=== PATIENT | male | born 1995 | race African-American/Black ===

== ENCOUNTER 2017-06-02 07:20 | Emergency (ER) | payer OTHER ==
[~2017-06-02] VITALS: Ht 190.5 cm; Wt 77.3 kg
[~2017-06-02 07:20] MED LIST: MONT1TAB3 PO; PRVHFAIN INH
[2017-06-02 07:26] VITALS: Ht 190.5 cm; Wt 77.3 kg
[2017-06-02] MEDS ORDERED: AMOXICILLIN 250 MG CAP PO STA (07:32)
[2017-06-02] MEDS ORDERED: LIDOCAINE/EPINEPHRINE 1% 20 ML VIAL INFIL STA (07:32)
[2017-06-02] MEDS ORDERED: CHLORHEXIDINE GLUCONATE 0.12% 480 ML MT STA (07:32)
--- NOTE | 2017-06-02 07:42 | EMERGENCY ROOM VISIT NOTE ---
ED Visit Note First contact with patient: 07:27 Chief Complaint: Facial Laceration History of Present Illness: This patient is a 21-year-old male. Who presents to the Emergency Department via private vehicle for evaluation of their left lower lip communicating laceration. Patient sustained the laceration while playing with friends around 5:30 AM, when he fell forward through a hedge struck a branch. They report a moderate amount of bleeding initially. They report no loss of consciousness. They deny any headache, visual disturbance, nausea, vomiting, or neck pain. Patient rates his current discomfort as a 1/10. Patient's Tetanus status is currently up-to-date. Medications: As noted below Allergies: Shellfish PMH: No pertinent SHx: Patient is currently a [employer] student and lives locally ROS: All pertinent positive and negative review of systems are appropriately documented in the History of Present Illness. Physical Exam: VITAL SIGNS - Vital signs and nursing notes were reviewed. Stable GENERAL -21-year-old male appearing his stated age. Communicates well with provider and answers questions appropriately. SKIN - There is a 2 cm laceration noted left lower lip that does not cross the vermilion border does communicate intraorally with an associated laceration on the inner lip of the same size. The edges gape apart with traction. There is no active bleeding appreciated. No deep structures including vessels, musculature, or bony structures are appreciated. HEAD - Normocephalic. No Goyal's Sign or Raccoon's Eyes. No depressed skull fractures palpable. EYES - PERRL with EOMI bilaterally. Without subconjunctival hemorrhage. Palpebral conjunctiva pink and moist with no injection. EARS - No deformities of external structures noted on gross examination bilaterally. No hemotympanum present. No tympanic perforation noted. NOSE - Midline and without cyanosis. No epistaxis or clear watery discharge noted. Septum midline without deviation. No septal hematoma noted. No overlying ecchymosis noted. MOUTH/OROPHARYNX - Without perioral cyanosis. Tongue midline with equal elevation of palate bilaterally. No blood noted in the oropharynx. No tonsillar hypertrophy, erythema, or exudates noted. The lower dentition tooth #24-25 retracted and slightly avulsed NECK - FROM assessed. No tenderness to palpation over the cervical spinous processes. No cervical paraspinal muscle tenderness noted. LUNGS - Chest wall symmetric without accessory muscle use, intercostals retractions, or central cyanosis. Normal vesicular breath sounds CTA B/L. No wheezes, rales, or rhonchi appreciated. CARDIAC - RRR with S1/S2. No murmur, rubs, or gallops appreciated. EXTREMITIES - No gross deformities noted of the extremities. +5/5 strength noted in UE/LE bilaterally. NEUROLOGIC - Cranial nerves II through XII grossly intact. Sensory intact to light touch throughout. Patient able to perform rapid alternating movements appropriately. Negative Romberg and Pronator Drift. PSYCH - A&Ox3 and cooperates fully with examiner. Pt is very pleasant and interacts well with examiner. ED Course: Patient was seen and evaluated by myself. Patient had no focal neurological deficits. Patient's exam is otherwise unremarkable. Patient reports no headaches , visual disturbances, nausea, vomiting, or over-lethargy. Risks and benefits of performing primary wound closure versus no repair were discussed with the patient who verbalizes understanding. Verbal consent was obtained prior to performing the procedure. 3 cc of 1% buffered lidocaine with epinephrine was used to anesthetize the 2 cm external as well as 2 cm internal laceration. The wound was cleansed and prepped in the typical sterile fashion utilizing normal saline. Amoxicillin was given to help prevent infection. Peridex mouthwash was initiated. The wound was sterilely draped. Once proper anesthetization was established, the wound was further examined and demonstrated communicative laceration. The wound was copiously irrigated with normal saline and Betadine. The wound was closed using 3 simple, 6-0 nylon sutures with the wound edges being well approximated as well as 2 simple, 6-0 Vicryl sutures with wound edges being well approximated. Patient tolerated the procedure well. No complications were met. In regard to the 2 loose teeth, the oral maxillofacial surgeon Dr. Mir was consult. He agreed to come and assess the patient. The wound was cleansed. Dr. Mir but the teeth back in place. Patient is a follow-up with him by calling his office tomorrow. He appears stable for outpatient management. Please refer to documentation by Dr. Mir. He'll be given amoxicillin to help prevent infection, Peridex to a infection, as well as [place] for pain. In the treatment of this patient controlled medication was utilized and therefore the [facility], Prescription Drug Monitoring Program website was utilized to look up this patient. No concerns were identified that would prohibit or alter my treatment decision. Current/Historical Medications Scheduled Amoxicillin (Amoxicillin), 500 MG PO TID Scheduled PRN Albuterol Sulfate (Proair Respiclick), 2 PUFFS INH BID PRN for SOB/Wheezing Hydrocodone/Acetaminophen 5MG/325MG ([place] 5MG/325MG), 1-2 TABLET PO Q6 PRN for Pain Allergies Coded Allergies: Shellfish (Unverified Allergy, Severe, BREAKOUT, 06/02/17) PT SAID IF GETS CLOSE TO IT HE STARTS TO BREAKOUT Shellfish Allergy (Unverified Allergy, Severe, BREAKOUT, 06/02/17) Vital Signs Date Time Temp Pulse Resp B/P (MAP) Pulse Ox O2 Delivery O2 Flow Rate FiO2 06/02/17 08:57 84 16 119/60 100 06/02/17 07:26 37.1 102 18 127/59 99 Room Air Medications Administered Medications (Trade) Dose Ordered Sig/Christopher Route Start Time Stop Time Status Last Admin Dose Admin Amoxicillin (Amoxil Cap) 500 mg NOW STAT PO 06/02/17 07:32 06/02/17 07:34 DC 06/02/17 07:42 500 MG Chlorhexidine Gluconate (Peridex Oral Soln) 15 ml NOW STAT MT 06/02/17 07:32 06/02/17 07:34 DC 06/02/17 08:55 15 ML Acetaminophen/ Hydrocodone Bitart ([place] 5/325 Tab) 1 tab NOW STAT PO 06/02/17 08:48 06/02/17 08:49 DC 06/02/17 08:55 1 TAB Departure Information Impression Primary Impression: Laceration Dispostion Home / Self-Care Condition GOOD Prescriptions Hydrocodone/Acetaminophen 5MG/325MG ([place] 5MG/325MG) Tab 1-2 TABLET PO Q6 Y for Pain, #15 TAB For Initial Treatment Prov: Jonn Guerrero PA-C 06/02/17 Amoxicillin (Amoxicillin) 500 Mg Cap 500 MG PO TID for 7 Days, #21 TABS Prov: Jonn Guerrero PA-C 06/02/17 Referrals No Doctor, Assigned (PCP) Carlos Mir D.D.SJessica Patient Instructions My [facility] Additional Instructions Discharge Instructions: Call Dr. Engroff tomorrow, and ask for appt either Saturday or Saturday. You have received 3 sutures on your lip. These sutures are NOT dissolvable and WILL need to be removed by a health care provider in 7 days. You can return to the Emergency Department or contact your Primary Care Provider to have the sutures removed. Amoxicillin 500mg three times daily (every 8 hours) for 7 days to help prevent infection. [place] as prescribed for pain. No tylenol with this. No driving with this. Peridex mouthwash every morning and night. Rinse and spit for 7 days. Proper wound care is essential for adequate wound healing and infection prevention. You can shower and clean the wound with soap and water. Do not scour over the wound, pat dry with a towel. Do not submerse the wound (i.e. bathe or dish wash) until the sutures have been removed. You can use an antibiotic ointment with a dressing over the wound for the next 2-3 days. After this time you may leave the wound dry and open to the air. If crust develops over the wound you can use a Q-tip to apply a 1:1 peroxide:water solution to clean the wound. Look for signs of infection of the wound including: increased pain, swelling, foul discharge, streaking, or increased temperature. If any of these are noticed you should return to the Emergency Department for further assessment and treatment. As with any laceration you may have received nerve damage to the surrounding tissues. This damage may or may not be permanent. You should keep the area covered with sunscreen for the first 6 months to 1 year when at risk for exposure to help minimize scarring. You can also use scar reducing creams or Vitamin E oil to help minimize scarring. For pain control, you can use the following [id number] medicines : - Regular strength (325mg/tab) Tylenol (acetaminophen) 2 tabs every 4-6 hours as needed. Do not exceed 12 tablets in a 24 hour period. Avoid taking more than 3 grams (3000 mg) of Tylenol per day. This includes any other sources of acetaminophen you may take on a regular basis. - Regular strength (200 mg/tab) Advil (ibuprofen) 1-2 tabs every 4-6 hours as needed. Do not exceed a dose of 3200 mg per day. Return to the emergency department if your symptoms worsen despite treatment course outlined above.
[2017-06-02] MEDS ORDERED: ALBU18002 INH (08:05)
[2017-06-02] MEDS ORDERED: AMX500 PO (08:48)
[2017-06-02] MEDS ORDERED: HYDROCODONE/ACETAMOPHEN 5/325MG TAB PO STA (08:48)
[2017-06-02] MEDS ORDERED: HYDR-5688 PO (08:50)
[2017-06-02 08:57] VITALS: BP 119/60; PULSE 84; O2SAT 100
--- NOTE | 2017-06-02 09:55 | CONSULTATION REPORT ---
DATE OF CONSULTATION: 06/02/2017 CHIEF COMPLAINT: Partial evulsion of lower incisor teeth. HISTORY OF PRESENT ILLNESS: I will defer you to the patient's ER documentation for the details of his injury and his complete history and physical and summary. 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 The ER staff managed the soft tissue laceration with closure of that and then I consulted for his lower teeth. At bedside, teeth #24 and #25 first substantially luxated lingually. This soft tissue is still attached and vital. Tooth #24 is stable in its subluxed position. Tooth #25 is quite mobile and I am suspicious of a root fracture. With local anesthesia at the bedside, I was able to reduce the teeth back into their anatomic position. Tooth #24 was quite stable on that position, #25 is in the proper position but more mobile. These do not impact on his occlusion. Plan: Our plan will be to cover him with oral antibiotics for preop pain control, a very soft diet and outpatient followup next week for further imaging and treatment planning of these teeth.
== END 2017-06-02 08:54 | disposition home or self-care (01) ==
LOC: C.EDB 07:21 → C.EDA 08:54
DX: S01.81XA Laceration without foreign body of other part of head, initial encounter (principal); W18.09XA Striking against other object with subsequent fall, initial encounter; Z91.018 Allergy to other foods

== ENCOUNTER 2017-06-10 11:57 | Emergency (ER) | payer OTHER ==
[~2017-06-10] VITALS: Ht 190.5 cm; Wt 72.5 kg
[~2017-06-10 11:57] MED LIST changes: +ALBU18002 INH; +AMX500 PO; +HYDR-5688 PO; -MONT1TAB3 PO; -PRVHFAIN INH
[2017-06-10 12:05] VITALS: BP 113/69; PULSE 75; TEMP 36.9; O2SAT 100; Ht 190.5 cm; Wt 72.5 kg
--- NOTE | 2017-06-10 12:19 | EMERGENCY ROOM VISIT NOTE ---
ED Visit Note First contact with patient: 12:07 CHIEF COMPLAINT: Suture removal lower lip HISTORY of present illness: This patient returns to the ED today for removal of sutures that were placed 8 days ago just below his lower lip.. There has been no swelling, redness, or drainage from the wound. The patient feels like the laceration is healing well. He had seen the oral surgeon who repaired his teeth as well as resutured the laceration on the inside of the lower lip. REVIEW OF SYSTEMS: 6 system review was performed and was negative unless stated otherwise in history of present illness. PMH: The patient is healthy; there is no significant medical or surgical history. SOCIAL HISTORY: Patient is a [employer] student PHYSICAL EXAM: Vital Signs: Were reviewed Reviewed Nurse's notes. FACE There is a sutured wound on the just below the lower lip with no signs of infection. There is no erythema, swelling, or tenderness. EMERGENCY DEPARTMENT COURSE: The sutures were removed without any difficulty and there was no separation of the wound edges. DIAGNOSIS: Healing facial laceration and suture removal DISCHARGE INSTRUCTIONS AND TREATMENT: Wash any remaining crusts off of the wound today and resume your normal activities. Current/Historical Medications Scheduled PRN Albuterol Sulfate (Proair Respiclick), 2 PUFFS INH BID PRN for SOB/Wheezing Allergies Coded Allergies: Shellfish (Unverified Allergy, Severe, BREAKOUT, 06/10/17) PT SAID IF GETS CLOSE TO IT HE STARTS TO BREAKOUT Shellfish Allergy (Unverified Allergy, Severe, BREAKOUT, 06/10/17) Vital Signs Date Time Temp Pulse Resp B/P (MAP) Pulse Ox O2 Delivery O2 Flow Rate FiO2 06/10/17 12:05 36.9 75 16 113/69 100 Room Air Departure Information Referrals No Doctor, Assigned (PCP) Patient Instructions My [facility]
== END 2017-06-10 12:27 | disposition home or self-care (01) ==
LOC: C.EDB 11:58 → C.EDD 12:27
DX: S01.511D Laceration without foreign body of lip, subsequent encounter (principal); X58.XXXD Exposure to other specified factors, subsequent encounter

== ENCOUNTER 2017-07-27 07:45 | Emergency (ER) | payer OTHER ==
[~2017-07-27] VITALS: Ht 190.5 cm; Wt 71.2 kg
[~2017-07-27 07:45] MED LIST changes: -AMX500 PO; -HYDR-5688 PO
[2017-07-27 07:47] VITALS: BP 119/74; PULSE 58; TEMP 36.4; O2SAT 100; Ht 190.5 cm; Wt 71.2 kg
--- NOTE | 2017-07-27 13:18 | EMERGENCY ROOM VISIT NOTE ---
ED Visit Note First contact with patient: 07:53 Chief Complaint: I broke my tooth. History of Present Illness: Mr. Omer is a 21-year-old black male who ambulates into the ED complaining of an injured tooth. Patient reports 2 months ago he broke his left maxillary incisor. Oral surgery placed a post and reattached the tooth in the position. He reports since that time he has been symptom-free. Patient reports he woke up this morning and felt a piece of tooth in his mouth and then the left maxillary incisors fell out of his mouth off the base of support. He denies any recent trauma. He denies any recent signs of infection. He did report he attempted to contact his oral surgeon, Dr. Mir , and was informed to follow-up next week. Patient reports he came in the emergency department because he was concerned of the between his teeth for the next few days. He denies symptoms including fevers, chills, sweats, skin eruptions, facial swelling, mouth pain, other dental pain, difficulty swallowing. Review of Systems: As noted above in history of present illness. Past Medical History: Asthma, bronchitis, unspecified stomach disorder Current Medications: Albuterol. Allergies to Medications: Patient denies. Social History: Patient is currently employed; he feels safe in his home environment; he denies tobacco and alcohol use. Physical Examination: Vital Signs: Date Time Temp Pulse Resp B/P (MAP) Pulse Ox O2 Delivery O2 Flow Rate FiO2 07/27/17 07:47 36.4 58 16 119/74 100 Room Air GENERAL: 21-year-old male in no acute distress, nontoxic-appearing, afebrile and hemodynamically stable. NEUROLOGICAL: Awake, alert and oriented to person, place and time. Answering questions appropriately and following commands. SKIN: Warm, dry and pink. HEENT: Atraumatic and normocephalic. No facial swelling or erythema. No malocclusion. No intraoral trauma. Airway patent. Tooth #23 was missing from the mouth and the post that supported the tooth is still in place. Patient did show me the tooth which showed that the lingula surface of the tooth was broken and a piece was missing. Inside the patient's mouth there was no erythema, edema or trauma to the gingiva or surrounding tissues. I did not appreciate any signs of abscess or infection. ED Course: Patient is assessed as noted above. Patient's medication list was reviewed. Patient's case was consulted with Dr. Mir, front desk manager oral surgery; he recommended that the patient keep the tooth, cover the area with dental wax and follow-up in the office on Saturday. Patient is educated about today's findings and instructed on his treatment plan ; he verbalizes understanding and agreement with this plan. Clinical Impression: Tooth displacement. Patient's blood pressure: Normal. Disposition: Prior to discharge he did discuss the issue with the patient and he was slightly disappointed and wanted to know there was any other surgeons that would be evaluated to fix his tooth today. I informed them that would be unlikely since we are currently in the weekend and since the surgeon who did his initial procedure requested that he follow-up on Saturday. Patient discharged home in stable condition. Plan: Patient was encouraged to use a liquid/mechanical soft diet. Patient is encouraged to come to the area with dental wax. Patient was encouraged use ibuprofen or acetaminophen as needed for pain every 6 hours. Patient is encouraged to contact Dr. Mir's office on Saturday for follow-up care and treatment. Patient was encouraged return ED as needed for uncontrolled pain, fevers, facial swelling or any new/concerning symptoms.
== END 2017-07-27 08:22 | disposition home or self-care (01) ==
LOC: C.EDB 07:46
DX: S09.93XA Unspecified injury of face, initial encounter (principal); X58.XXXA Exposure to other specified factors, initial encounter; J45.909 Unspecified asthma, uncomplicated; Z87.19 Personal history of other diseases of the digestive system; Z79.899 Other long term (current) drug therapy